=== PATIENT | female | born 1985 | race American Indian/Alaskan Native ===

== ENCOUNTER 2017-09-29 07:54 | Emergency (ER) | payer OTHER ==
[2017-09-29] MEDS ORDERED: HALDOL ONE (09:37)
[2017-09-29] MEDS ORDERED: ATIVAN ONE (09:37)
[2017-09-29] MEDS ORDERED: HALDOL IM ONE (09:45)
[2017-09-29] MEDS ORDERED: ATIVAN IM ONE (09:45)
[2017-09-29 10:16] LABS: Basophils % (Auto) 0.6 % (0.0-1.8); Eosinophils # (Auto) 0.1 K/mm3 (0.0-0.4); Eosinophils % (Auto) 1.2 % (0.0-4.3); Hematocrit 36.1 % (30.3-42.9); Hemoglobin 11.9 gm/dl (10.1-14.3); Lymphocytes # (Auto) 2.1 K/mm3 (1.2-5.4); Lymphocytes % (Auto) 37.7 % (13.4-35.0); Mean Corpuscular HGB Conc 33 % (30-34); Mean Corpuscular Hemoglobin 29 pg (28-32); Mean Corpuscular Volume 87 fl (79-97); Monocytes # (Auto) 0.7 K/mm3 (0.0-0.8); Monocytes % (Auto) 12.2 % (0.0-7.3); Platelet Count 282 K/mm3 (140-440); Red Blood Count 4.13 M/mm3 (3.65-5.03); Red Cell Distribution Width 15.1 % (13.2-15.2)
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
[2017-09-29 10:27] LABS: BUN/Creatinine Ratio 15; Blood Urea Nitrogen 12 mg/dL (7-17); Calcium 9.4 mg/dL (8.4-10.2); Hemolysis Index 1
[2017-09-29 11:18] LABS: Creatine Kinase MB 14.1 ng/mL (0.0-4.0)
[2017-09-29 19:57] LABS: BUN/Creatinine Ratio 20; Blood Urea Nitrogen 14 mg/dL (7-17); Calcium 8.9 mg/dL (8.4-10.2); Hemolysis Index 27
[2017-09-29] MEDS ORDERED: NACL 0.9% 1000 ML 2,000 ML IV ONE (21:08)
[2017-09-30 02:22] LABS: Amphetamine Screen,Urine PRESUMPTIVE NEGATIVE; Benzodiazepines Screen,Urine PRESUMPTIVE NEGATIVE; Cocaine Screen,Urine PRESUMPTIVE NEGATIVE; Methadone Screen,Urine PRESUMPTIVE NEGATIVE; Opiate Screen,Urine PRESUMPTIVE NEGATIVE
[2017-09-30 02:28] LABS: Bilirubin,Urine NEG (Negative); Blood,Urine NEG (Negative); Color,Urine Yellow (Yellow); Mucus,Urine 3+ /HPF; Urobilinogen,Urine < 2.0 mg/dL (<2.0)
[2017-09-30 03:20] LABS: Cannabinoid Screen,Urine PRESUMPTIVE POSITIVE
[2017-09-30] MEDS ORDERED: GEODON IM ONE ×2 (09:24→09:26)
[2017-09-30] MEDS ORDERED: ATIVAN ONE (09:25)
[2017-09-30] MEDS ORDERED: ATIVAN IM ONE (09:26)
[2017-09-30] MEDS ORDERED: NACL 0.9% 1000 ML 1,000 ML IV ONE (09:26)
--- NOTE | 2017-09-30 10:08 | Cat Scan Report ---
CT HEAD WITHOUT CONTRAST: HISTORY: Headache. TECHNIQUE: Sequential 2.5mm CT images. COMPARISON: none. FINDINGS: Cerebral Parenchyma: Within normal limits. Cerebellum: Within normal limits. Brainstem: Within normal limits. Ventricles: Normal. Sella: Normal. Extra-axial spaces: Normal. Basal Cisterns: Normal. Intracranial Hemorrhage: None. Midline Shift: None. Calvarium: Normal. Sinuses: Normal. Mastoid Air Cells: Normal. Visualized Orbits: Normal. IMPRESSION: Cranial CT scan within normal limits.
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
[2017-10-01] MEDS ORDERED: ATIVAN IM PRN (09:13)
[2017-10-01] MEDS ORDERED: GEODON IM ONE (09:16)
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
[2017-10-02] MEDS ORDERED: HABITROL TD ONE (08:33)
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
--- NOTE | 2017-10-02 12:38 | Emergency Department Report ---
Blank Doc - Documentation Documentation: 1013 rescinded as per Mental health request. Pt to be d/marleny home without meds and with outpatient follow up.
[2017-10-02 18:59] VITALS: BP 110/70
== END 2017-10-02 13:00 | disposition home or self-care (01) ==
LOC: EEVIPCON 07:54 → ED 07:54
DX: F31.9 Bipolar disorder, unspecified (principal); R41.82 Altered mental status, unspecified; M79.672 Pain in left foot; M79.671 Pain in right foot; F20.9 Schizophrenia, unspecified; F39 Unspecified mood [affective] disorder; F43.10 Post-traumatic stress disorder, unspecified; F12.10 Cannabis abuse, uncomplicated
CPT/HCPCS: 36415; 70450; 80048; 80307; 81001; 82550; 82553; 85025; 96360; 96372; 99285; G0480; J1630; J2060; J3486; J7030; 80320